=== PATIENT | male | born 1960 | race Caucasian/White ===

== ENCOUNTER 2023-09-13 15:10 | Outpatient (RCR) | payer OTHER, SELFPAY ==
[2023-08-16 14:34] LABS: Glucose - Point of Care 133 mg/dl (70-99)
[2023-08-16 15:43] LABS: Glucose - Point of Care 61 mg/dl (70-99)
[2023-08-16 15:57] LABS: Glucose - Point of Care 122 mg/dl (70-99)
[2023-08-18 14:37] LABS: Glucose - Point of Care 192 mg/dl (70-99)
[2023-08-18 15:38] LABS: Glucose - Point of Care 79 mg/dl (70-99)
[2023-08-18 16:00] LABS: Glucose - Point of Care 144 mg/dl (70-99)
[2023-08-21 15:58] LABS: Glucose - Point of Care 305 mg/dl (70-99)
[2023-08-21 16:35] LABS: Glucose - Point of Care 236 mg/dl (70-99)
[2023-08-21 17:16] LABS: Glucose - Point of Care 138 mg/dl (70-99)
[2023-08-23 14:44] LABS: Glucose - Point of Care 120 mg/dl (70-99)
[2023-08-23 15:45] LABS: Glucose - Point of Care 160 mg/dl (70-99)
[2023-08-25 14:38] LABS: Glucose - Point of Care 129 mg/dl (70-99)
[2023-08-25 15:35] LABS: Glucose - Point of Care 164 mg/dl (70-99)
[2023-08-30 14:37] LABS: Glucose - Point of Care 166 mg/dl (70-99)
[2023-08-30 15:54] LABS: Glucose - Point of Care 70 mg/dl (70-99)
[2023-08-30 16:12] LABS: Glucose - Point of Care 138 mg/dl (70-99)
[2023-09-04 14:54] LABS: Glucose - Point of Care 118 mg/dl (70-99)
[2023-09-04 15:58] LABS: Glucose - Point of Care 124 mg/dl (70-99)
[2023-09-08 14:37] LABS: Glucose - Point of Care 181 mg/dl (70-99)
[2023-09-08 15:41] LABS: Glucose - Point of Care 87 mg/dl (70-99)
[2023-09-08 16:09] LABS: Glucose - Point of Care 102 mg/dl (70-99)
[2023-09-11 14:50] LABS: Glucose - Point of Care 292 mg/dl (70-99)
[2023-09-11 15:48] LABS: Glucose - Point of Care 294 mg/dl (70-99)
[2023-09-13 14:49] LABS: Glucose - Point of Care 235 mg/dl (70-99)
[2023-09-13 15:59] LABS: Glucose - Point of Care 201 mg/dl (70-99)
== END 2023-09-13 23:59 | disposition home or self-care (01) ==
LOC: CRHB 15:10
PROVIDERS: ATTENDING PHYSICIAN Internal Medicine Cardiovascular Disease; FAMILY PHYSICIAN Family Medicine
DX: I25.10 Atherosclerotic heart disease of native coronary artery without angina pectoris (principal); Z95.5 Presence of coronary angioplasty implant and graft; I25.2 Old myocardial infarction; I50.22 Chronic systolic (congestive) heart failure
CPT/HCPCS: 82962; G0422; G0423

== ENCOUNTER → 2023-09-18 09:31 | Outpatient (REF) | payer OTHER, SELFPAY ==
[2023-09-18 10:00] LABS: % Basophils 0.4 % (0-2); % Eosinophils 1.2 % (0-6); % Immature Granulocytes 0.4 % (0-0.5); % Lymphocytes 30.1 % (20.5-51.1); % Monocytes 6.2 % (1.7-9.3); % Neutrophils 61.7 % (42.2-75.2); Absolute Eosinophils 0.1 10^3/uL (0-0.7); Absolute Lymphocytes 1.7 10^3/uL (1.2-3.4); Absolute Monocytes 0.4 10^3/uL (0.1-0.6); Absolute Neutrophils 3.5 10^3/uL (1.4-6.5); Hematocrit 38.1 % (39.0-52.0); Mean Corp Hgb Conc. 34.1 g/dL (33.0-37.0); Mean Corpuscular Hgb 31.5 pg (27.0-31.0); Mean Corpuscular Volume 92.3 fL (80.0-94.0); Mean Platelet Volume 10.5 fL (7.4-10.4); Nucleated Red Blood Cells % 0 % (-); Platelet Count 228 10^3/uL (130-400); Red Blood Cell Count 4.13 10^6/uL (4.70-6.10); Red Cell Dist. Width 12.5 % (11.5-14.5); White Blood Cell Count 5.7 10^3/uL (4.8-10.8)
[2023-09-18 10:43] LABS: Free T4 1.28 ng/dl (0.78-2.19)
[2023-09-18 10:50] LABS: ALT (SGPT) 26 U/L (0-50); AST (SGOT) 30 U/L (17-59); Albumin 4.4 g/dl (3.5-5.0); Alkaline Phosphatase 76 U/L (38-126); Blood Urea Nitrogen 19 mg/dl (9-20); Calcium 9.4 mg/dl (8.4-10.2); Carbon Dioxide 29 mmol/L (22-30); Chloride 100 mmol/L (98-107); Glucose 225 mg/dl (70-99); HDL Cholesterol 73 mg/dl; LDL Cholesterol, Calculated 59 mg/dl; Potassium 4.3 mmol/L (3.5-5.1); Sodium 134 mmol/L (135-145); Total Bilirubin 0.7 mg/dl (0.2-1.3); Total Cholesterol 147 mg/dl (50-199); Total Protein 7.1 g/dl (6.3-8.2); Triglyceride 77 mg/dl (10-149); Very Low Density Lipoprotein 15 mg/dl (0-30); eGFR > 60.00
[2023-09-18 10:57] LABS: TSH 3.31 uIU/ml (0.47-4.68)
[2023-09-18 11:01] LABS: IgA 141 mg/dl (70-400)
[2023-09-18 12:01] LABS: Glycohemoglobin (HgbA1c) 7.3 % (4.0-5.6)
[2023-09-19 16:43] LABS: tTG IgA Antibody 4.6 EU/ml (0-19)
[2023-09-20 22:06] LABS: Endomysial IgA Antibody Titer <1:10 (<1:10)
== END ==
LOC: REG 09:31
PROVIDERS: ATTENDING PHYSICIAN Physician Assistant
DX: E10.65 Type 1 diabetes mellitus with hyperglycemia (principal); E03.9 Hypothyroidism, unspecified
CPT/HCPCS: 36415; 80053; 80061; 82784; 83036; 83516; 84439; 84443; 85025; 86231

== ENCOUNTER 2023-10-11 15:11 | Outpatient (RCR) | payer OTHER, SELFPAY ==
[2023-09-15 14:41] LABS: Glucose - Point of Care 356 mg/dl (70-99)
[2023-09-15 15:49] LABS: Glucose - Point of Care 323 mg/dl (70-99)
[2023-09-20 14:29] LABS: Glucose - Point of Care 224 mg/dl (70-99)
[2023-09-20 15:34] LABS: Glucose - Point of Care 233 mg/dl (70-99)
[2023-09-22 14:40] LABS: Glucose - Point of Care 119 mg/dl (70-99)
[2023-09-22 15:50] LABS: Glucose - Point of Care 123 mg/dl (70-99)
[2023-09-25 14:57] LABS: Glucose - Point of Care 164 mg/dl (70-99)
[2023-09-25 16:19] LABS: Glucose - Point of Care 138 mg/dl (70-99)
[2023-09-29 14:44] LABS: Glucose - Point of Care 134 mg/dl (70-99)
[2023-09-29 15:51] LABS: Glucose - Point of Care 189 mg/dl (70-99)
[2023-10-02 14:53] LABS: Glucose - Point of Care 85 mg/dl (70-99)
[2023-10-02 15:15] LABS: Glucose - Point of Care 135 mg/dl (70-99)
[2023-10-02 16:33] LABS: Glucose - Point of Care 155 mg/dl (70-99)
[2023-10-04 14:42] LABS: Glucose - Point of Care 92 mg/dl (70-99)
[2023-10-04 15:08] LABS: Glucose - Point of Care 148 mg/dl (70-99)
[2023-10-04 16:08] LABS: Glucose - Point of Care 201 mg/dl (70-99)
[2023-10-06 14:49] LABS: Glucose - Point of Care 99 mg/dl (70-99)
[2023-10-06 15:05] LABS: Glucose - Point of Care 135 mg/dl (70-99)
[2023-10-06 16:07] LABS: Glucose - Point of Care 153 mg/dl (70-99)
[2023-10-09 14:58] LABS: Glucose - Point of Care 145 mg/dl (70-99)
[2023-10-09 16:00] LABS: Glucose - Point of Care 100 mg/dl (70-99)
[2023-10-11 14:44] LABS: Glucose - Point of Care 155 mg/dl (70-99)
[2023-10-11 15:53] LABS: Glucose - Point of Care 149 mg/dl (70-99)
== END 2023-10-11 23:59 | disposition home or self-care (01) ==
LOC: CRHB 15:11
PROVIDERS: ATTENDING PHYSICIAN Internal Medicine Cardiovascular Disease; FAMILY PHYSICIAN Family Medicine
DX: I25.10 Atherosclerotic heart disease of native coronary artery without angina pectoris (principal); Z95.5 Presence of coronary angioplasty implant and graft; I25.2 Old myocardial infarction; I50.22 Chronic systolic (congestive) heart failure
CPT/HCPCS: 82962; G0422; G0423

== ENCOUNTER → 2024-01-29 08:24 | Outpatient (REF) | payer OTHER, SELFPAY ==
--- NOTE | 2024-01-29 10:53 | CARDSERVLU ---
Echocardiogram with Lumason completed after protocol screening completed. Allergies verified.
Patent IV site: _IV team placed Right forearm____
IV site flushed with 0.9% NaCl pre and post administration.
Diluted bolus method utilized to enhance visualization of ventricular ty.
Total volume given: _4___ mL
Patient tolerated all procedures well without complications.
Heplock D/C ed at 0942, site clear, no redness, no edema, no bleeding. Pressure held, 2x2 applied and taped. No change in status.
== END ==
LOC: RCS 08:24
PROVIDERS: ATTENDING PHYSICIAN Internal Medicine Cardiovascular Disease; FAMILY PHYSICIAN Family Medicine
DX: I25.5 Ischemic cardiomyopathy (principal)
CPT/HCPCS: 93306; Q9950

== ENCOUNTER → 2024-04-11 16:25 | Outpatient (REF) | payer OTHER, SELFPAY | LOC: RAD 16:25 | PROVIDERS: ATTENDING PHYSICIAN Nurse Practitioner; FAMILY PHYSICIAN Family Medicine | DX: T82.847A Pain due to cardiac prosthetic devices, implants and grafts, initial encounter (principal) | CPT/HCPCS: 71046 ==

== ENCOUNTER → 2024-05-01 13:22 | Outpatient (REF) | payer OTHER, SELFPAY ==
[2024-05-01 16:43] LABS: NT-proBNP 1560 pg/ml
== END ==
LOC: REG 13:22
PROVIDERS: ATTENDING PHYSICIAN Internal Medicine Cardiovascular Disease; FAMILY PHYSICIAN Family Medicine
DX: I25.5 Ischemic cardiomyopathy (principal)
CPT/HCPCS: 36415; 83880

== ENCOUNTER → 2024-05-25 08:42 | Outpatient (REF) | payer OTHER, SELFPAY ==
[2024-05-25 10:41] LABS: ALT (SGPT) 33 U/L (0-50); AST (SGOT) 34 U/L (17-59); Albumin 4.4 g/dl (3.5-5.0); Alkaline Phosphatase 75 U/L (38-126); Blood Urea Nitrogen 29 mg/dl (9-20); Calcium 9.9 mg/dl (8.4-10.2); Carbon Dioxide 30 mmol/L (22-30); Chloride 99 mmol/L (98-107); Glucose 224 mg/dl (70-99); HDL Cholesterol 84 mg/dl; LDL Cholesterol, Calculated 107 mg/dl; Potassium 4.6 mmol/L (3.5-5.1); Sodium 138 mmol/L (135-145); Total Bilirubin 0.4 mg/dl (0.2-1.3); Total Cholesterol 207 mg/dl (50-199); Total Protein 7.1 g/dl (6.3-8.2); Triglyceride 80 mg/dl (10-149); Very Low Density Lipoprotein 16 mg/dl (0-30); eGFR > 60.00
== END ==
LOC: REG 08:42
PROVIDERS: ATTENDING PHYSICIAN Internal Medicine Cardiovascular Disease; FAMILY PHYSICIAN Family Medicine
DX: I25.10 Atherosclerotic heart disease of native coronary artery without angina pectoris (principal); E78.5 Hyperlipidemia, unspecified
CPT/HCPCS: 36415; 80053; 80061

== ENCOUNTER → 2024-11-07 14:38 | Outpatient (REF) | payer MEDICARE, OTHER, SELFPAY | LOC: HWRCS 14:38 | PROVIDERS: ATTENDING PHYSICIAN Internal Medicine Cardiovascular Disease; FAMILY PHYSICIAN Family Medicine | DX: I25.5 Ischemic cardiomyopathy (principal); I50.22 Chronic systolic (congestive) heart failure | CPT/HCPCS: 93306 ==

== ENCOUNTER → 2024-11-15 07:08 | Outpatient (REF) | payer MEDICARE, OTHER, SELFPAY ==
[2024-11-15] MEDS: LEXISCAN 0.4 MG IV (08:41)
== END ==
LOC: RCS 07:08
PROVIDERS: ATTENDING PHYSICIAN Internal Medicine Cardiovascular Disease; FAMILY PHYSICIAN Internal Medicine Cardiovascular Disease
DX: I25.10 Atherosclerotic heart disease of native coronary artery without angina pectoris (principal)
CPT/HCPCS: 78452; 93017; A9500; J2785